=== PATIENT | female | born 1975 | race Caucasian/White ===

== ENCOUNTER 2018-02-27 11:00 | Emergency (ER) | payer OTHER, SELFPAY ==
[2018-02-27 11:01] VITALS: BP 118/46; PULSE 96; RESP 18; TEMP 36.1; O2SAT 99; BMI 33.0
[2018-02-27] MEDS: Ondansetron 4 MG/2 ML Vial IV (11:44)
--- NOTE | 2018-02-27 11:47 | RAD_ITS ---
STUDY: X-RAY - ACUTE ABDOMINAL SERIES REASON FOR EXAM: Female, 43 years old. Abdominal pain and distention. Nausea and vomiting. TECHNIQUE: Single view of the chest. Supine, and erect view(s) of the abdomen were obtained. COMPARISON: None. FINDINGS: The lungs are clear and expanded. Hiatal hernia. Normal size heart. Normal mediastinum and dona. Normal visualized pulmonary arteries. Normal visualized aortic arch and descending thoracic aorta. There is a non-specific bowel gas pattern. There are multiple calcified phleboliths. Deformity of the right femoral head and neck with the cephalic displacement. Abnormal appearance of the right acetabulum. Surgical defect seen along the lateral aspect of the right iliac bone most likely secondary to bone graft donor. RAD/Acute Abdomen Inc Chest IMPRESSION: Hiatal hernia. No evidence of bowel obstruction. Electronically Signed: Shen Smith MD at 12:53 EDT Tel [phone], Service support ,
[2018-02-27 11:51] LABS: Absolute Lymphocyte Count 2.35 X10^3/ul (0.83-4.51); Absolute Neutrophil Count 3.1 X10^3/uL (2.0-7.7); Basophil# 0.03 X10^3/uL; Basophil% 0.5 % (0-1); Eosinophils% 1.6 % (0-5); Hematocrit 39.7 % (37-47); Hemoglobin 13.1 g/dl (12.0-15.0); Lymphocyte # 2.35 X10^3/ul (4.0); Lymphocyte % 38.5 % (19-41); Mean Corpuscular Hgb 30.5 pg (27.0-32.0); Mean Corpuscular Volume 92.5 fL (81-99); Monocyte# 0.54 X10^3/uL; Monocyte% 8.8 % (0-10); Neutrophil # 3.08 X10^3/uL (2.7-7.7); Neutrophil % 50.4 % (47-70); POSITIVE COUNT NO; POSITIVE DIFFERENTIAL NO; POSITIVE MORPHOLOGY NO; Platelet Count 205 K/mm3 (150-450); RBC Distribution Width CV 13.8 % (11.6-14.6); RBC Distribution Width SD 46.5 fl (35.1-43.9); Red Blood Count 4.29 M/mm3 (4.2-5.4); White Blood Count 6.1 K/mm3 (4.4-11.0)
[2018-02-27 11:59] LABS: Anion Gap 11 (5-15); BUN 12 mg/dL (7-18); BUN/Creat Ratio 12.6 RATIO (10-20); Calcium,Total 8.8 mg/dL (8.5-10.1); Chloride 103 mmol/L (98-107); Creatinine, Serum 0.95 mg/dL (0.55-1.02); EST Glomerular Filtration Rate 69 mL/min (>60); Est Glom Filt Rate - Afr Amer 83 mL/min (>60); Estimated Creatinine Clearance 58.21 ml/min; Glucose 107 mg/dL (74-106); Potassium 3.7 mmol/L (3.5-5.1); Sodium Level 136 mmol/L (136-145)
[2018-02-27] MEDS: Dicyclomine 10 MG Capsule 20 MG PO (12:54)
--- NOTE | 2018-02-27 13:08 | ED.VISSUMM ---
- ER Visit Summary Date of Service: 02/27/18 Chief Complaint: As entered the room she was speaking with her nurse and crying. History of Present Illness: The patient is a 43 F who presents with generalized abdominal pain with nausea vomiting and no problem with 2-3 days. She states she has had pain for 2-3 days. She denies any fever, chills or night sweats. She denies any ocular, visual auditory symptoms. She denies respiratory URI symptoms. She denies chest pain, shortness of breath, dyspnea on exertion, orthopnea or PND. She denies blood or coffee grounds in her emesis. She is fluctuating. She denies urinary symptoms. She reports she has had 33 surgeries right hip. Physical Examination: Vital signs noted and normal. Patient is tearful. She has a depressed affect. Head is atraumatic normocephalic. Pupils are equal round reactive. Extraocular muscles are intact. TMs are pearly white with landmarks noted. Nares patent with no drainage. Posterior pharynx without erythema or exudate. Uvula is midline. There is no dysphonia or dysphasia. Trachea is midline. There is no stridor with auscultation of the neck. Heart is regular without murmur, gallop or rub. S1 and S2 are normal. Lungs are clear to auscultation with good movement of air bilaterally. Abdomen slightly distended not tympanitic. Bowel sounds present and diminished. There is no guarding or rebound tenderness. There is no CVA tenderness. There is no dermatologic lesions or rash. She has deformities of the right lower extremity secondary to prior orthopedic surgeries. Neuro exam is nonfocal. Test Results: CBC and BMP are unremarkable. Three-view x-ray of the abdomen interpreted by me as negative. There is no free air, infiltrate, evidence of obstruction or abnormal bowel gas pattern. Emergency Department Course and Treatment: Because patient had prior surgery with nausea vomiting and no bowel movement x-ray was obtained to evaluate for obstruction. Baseline blood work was obtained. She was medicated with Zofran. She subsequently is given Bentyl. She was reassessed at 1305. She reports improvement. She is no longer crying. Treatment Plan: Referral to primary care physician and prescription for Bentyl Disposition: Discharged home with follow-up with Dr. Knight. Impression: 1. Generalized abdominal pain with nausea vomiting 2. Constipation 3. History of positive colitis 4. Depression This note was generated with [employer] dictation software. It may contain incorrect words, spelling, and punctuation that were not noted in review of the chart prior to signing ED Disposition - Plan for ED Patient: Disposition: Home or Assisted Living Chief Complaint: Abd Pain Instructions: ED Abdominal Pain Unkn Cause Prescriptions: Dicyclomine HCl [Bentyl] 20 mg PO TIDAC #20 cap Referrals: Care Physician,No Primary [Primary Care Provider] - Moraima Fitzpatrick MD [STAFF PHYSICIAN] - 1 Week
== END 2018-02-27 13:45 | disposition home or self-care (01) ==
PROVIDERS: Emergency Provider Emergency Medicine
DX: R10.84 Generalized abdominal pain (principal); R11.2 Nausea with vomiting, unspecified; K59.00 Constipation, unspecified; K51.90 Ulcerative colitis, unspecified, without complications; F32.9 Major depressive disorder, single episode, unspecified; M21.951 Unspecified acquired deformity of right thigh; J34.89 Other specified disorders of nose and nasal sinuses; J02.9 Acute pharyngitis, unspecified; R07.9 Chest pain, unspecified; R06.00 Dyspnea, unspecified; R05 Cough; E66.9 Obesity, unspecified
CPT/HCPCS: 74022; 80048; 85025; 96374; 99284; A4216; J2405